=== PATIENT | female | born 1990 | race Caucasian/White ===

== ENCOUNTER 2016-09-16 17:43 | Emergency (ER) | payer OTHER ==
[2016-09-16 17:51] VITALS: BP 108/59
--- NOTE | 2016-09-16 19:02 | UC ---
Eye Complaint HPI - HPI Summary HPI Summary: 26 y/o female presents to the urgent care c/o Left ear pain for the past 2 weeks. Pt reports it started like ear pressure, then pain developed for the past few days, She was taking ibuprofen OTC and pain decrease. But she put Hydrogen Peroxide on her left ear yesterday, and pain was sharp. Today Pain is 6/10. Pt denies fever, ear discharge, CODY, SOB, chest pain, N/V/D, dizziness. Pt has not other complains - History of Current Complaint Chief Complaint: UCEar Stated Complaint: EAR PAIN Time Seen by Provider: 09/16/16 18:49 Hx Obtained From: Patient Hx Last Menstrual Period: 09/12/16 ?: No Onset/Duration: Gradual Onset, Lasting Weeks, Still Present Timing: Constant Severity Initially: Mild Severity Currently: Moderate Pain Intensity: 6 Pain Scale Used: 0-10 Numeric Character: Throbbing Aggravating Factor(s): Nothing Alleviating Factor(s): Other - OTC meds - Allergies/Home Medications Allergies/Adverse Reactions: Allergies Allergy/AdvReac Type Severity Reaction Status Date / Time No Known Allergies Allergy Verified 09/16/16 17:46 PMH/Surg Hx/FS Hx/Imm Hx Previously Healthy: Yes - Surgical History Surgical History: None - Family History Known Family History: Positive: None - Social History Occupation: Employed Full-time Lives: With Family Alcohol Use: None Substance Use Type: None Smoking Status (MU): Never Smoked Tobacco Review of Systems Constitutional: Negative Skin: Negative Eyes: Negative ENT: Ear Ache - Lf ear pain Respiratory: Negative Cardiovascular: Negative Gastrointestinal: Negative Genitourinary: Negative Motor: Negative Neurovascular: Negative Musculoskeletal: Negative Neurological: Negative Psychological: Negative All Other Systems Reviewed And Are Negative: Yes Physical Exam Appearance: Well-Appearing, No Pain Distress, Well-Nourished, Thin Vital Signs: Initial Vital Signs Temp 99 F 09/16/16 17:47 Pulse 78 09/16/16 17:47 Resp 17 09/16/16 17:47 BP 108/59 09/16/16 17:47 Pulse Ox 100 09/16/16 17:47 Vital Signs Reviewed: Yes Eye Exam: Normal Eyes: Positive: Conjunctiva Clear - PERRLA, EOMI, fundi grossly normal ENT: Positive: Normal ENT inspection, Hearing grossly normal, Pharynx normal, TM red - LF TM injected, with no light reflex, mild pus. RT TM wnl, B/L ear canal wnl. Dental Exam: Normal Neck exam: Normal Neck: Positive: Supple, Nontender, Enlarged Nodes @ - Left enlarged cervical lymphnod with tenderness to palaption Respiratory Exam: Normal Respiratory: Positive: Chest non-tender, Lungs clear, Normal breath sounds Cardiovascular Exam: Normal Cardiovascular: Positive: RRR, No Murmur, Pulses Normal, Brisk Capillary Refill Abdominal Exam: Normal Abdomen Description: Positive: Nontender, No Organomegaly, Soft. Negative: CVA Tenderness (R), CVA Tenderness (L) Bowel Sounds: Positive: Present Musculoskeletal Exam: Normal Musculoskeletal: Positive: Strength Intact, ROM Intact, No Edema Neurological Exam: Normal Psychological Exam: Normal Skin Exam: Normal Eye Complaint Course/Dx - Course Course Of Treatment: 26 y/o female presents to the urgent care c/o Left ear pain for the past 2 weeks. Pt reports it started like ear pressure, then pain developed for the past few days, She was taking ibuprofen OTC and pain decrease. But she put Hydrogen Peroxide on her left ear yesterday, and pain was sharp. Today Pain is 6/10. Pt denies fever, ear discharge, CODY, SOB, chest pain, N/V/D, dizziness. Pt has not other complains. Hx obtained. PE abnormal findings: Discharge - Discharge Plan Condition: Stable Disposition: HOME Prescriptions: Amoxicillin PO (*) [Amoxicillin 875 MG (*)] 875 mg PO BID #20 tab Patient Education Materials: Otitis Media (ED) Referrals: Laura Montgomrey MD [Primary Care Provider] - If Needed Additional Instructions: Please take medications as instructed and finish the full course of treatment to avoid recurrent infection. If you do not improve or if symptoms worsen after the course of antibiotics, you should either follow up with your PCP or return to the urgent care for further evaluation and treatment.
--- NOTE | 2016-09-17 00:03 | UC ---
Ear Complaint HPI - HPI Summary HPI Summary: 26 y/o female presents to the urgent care c/o Left ear pain for the past 2 weeks. Pt reports it started like ear pressure, then pain developed for the past few days, She was taking ibuprofen OTC and pain decrease. But she put Hydrogen Peroxide on her left ear yesterday, and pain was sharp. Today Pain is 6/10. Pt denies fever, ear discharge, CODY, SOB, chest pain, N/V/D, dizziness. Pt has not other complains - History of Current Complaint Hx Obtained From: Patient Hx Last Menstrual Period: 09/12/16 ?: No Onset/Duration: Gradual Onset, Lasting Weeks, Still Present Severity Initially: Mild Severity Currently: Moderate Pain Intensity: 6 Pain Scale Used: 0-10 Numeric Alleviating Factors: OTC Meds <Clarissa Summers - Last Filed: 09/17/16 00:04> <Shruthi Montgomery - Last Filed: 09/17/16 08:12> - History of Current Complaint Chief Complaint: UCEar Stated Complaint: EAR PAIN Time Seen by Provider: 09/16/16 18:49 - Allergies/Home Medications Allergies/Adverse Reactions: Allergies Allergy/AdvReac Type Severity Reaction Status Date / Time No Known Allergies Allergy Verified 09/16/16 17:46 PMH/Surg Hx/FS Hx/Imm Hx Previously Healthy: Yes - Surgical History Surgical History: None - Family History Known Family History: Positive: None - Social History Occupation: Employed Full-time Lives: With Family Alcohol Use: None Substance Use Type: None Smoking Status (MU): Never Smoked Tobacco <Clarissa Summers - Last Filed: 09/17/16 00:04> Review of Systems Constitutional: Negative Skin: Negative Eyes: Negative ENT: Ear Ache - Lf ear pain Respiratory: Negative Cardiovascular: Negative Gastrointestinal: Negative Genitourinary: Negative Motor: Negative Neurovascular: Negative Musculoskeletal: Negative Neurological: Negative Psychological: Negative All Other Systems Reviewed And Are Negative: Yes <Clarissa Summers - Last Filed: 09/17/16 00:04> Physical Exam Triage Information Reviewed: Yes Appearance: Well-Appearing, No Pain Distress, Well-Nourished, Thin Vital Signs: Initial Vital Signs Temp 99 F 09/16/16 17:47 Pulse 78 09/16/16 17:47 Resp 17 09/16/16 17:47 BP 108/59 09/16/16 17:47 Pulse Ox 100 09/16/16 17:47 Vital Signs Reviewed: Yes Eye Exam: Normal Eyes: Positive: Conjunctiva Clear - PERRLA, EOMI, fundi grossly normal ENT: Positive: Normal ENT inspection, Hearing grossly normal, Pharynx normal, TM red - LF TM injected, with no light reflex, mild pus. RT TM wnl, B/L ear canal wnl. Dental Exam: Normal Neck exam: Normal Neck: Positive: Supple, Nontender, Enlarged Nodes @ - Left enlarged cervical lymphnod with tenderness to palaption Respiratory Exam: Normal Respiratory: Positive: Chest non-tender, Lungs clear, Normal breath sounds Cardiovascular Exam: Normal Cardiovascular: Positive: RRR, No Murmur, Pulses Normal, Brisk Capillary Refill Abdominal Exam: Normal Abdomen Description: Positive: Nontender, No Organomegaly, Soft. Negative: CVA Tenderness (R), CVA Tenderness (L) Bowel Sounds: Positive: Present Musculoskeletal Exam: Normal Musculoskeletal: Positive: Strength Intact, ROM Intact, No Edema Neurological Exam: Normal Psychological Exam: Normal Skin Exam: Normal <Clarissa Summers - Last Filed: 09/17/16 00:04> Vital Signs: Initial Vital Signs Temp 99 F 09/16/16 17:47 Pulse 78 09/16/16 17:47 Resp 09/16/16 17:47 BP 108/59 09/16/16 17:47 Pulse Ox 100 09/16/16 17:47 <Shruthi Montgomery - Last Filed: 09/17/16 08:12> Ear Complaint Course/Dx - Course Course Of Treatment: 26 y/o female presents to the urgent care c/o Left ear pain for the past 2 weeks. Pt reports it started like ear pressure, then pain developed for the past few days, She was taking ibuprofen OTC and pain decrease. But she put Hydrogen Peroxide on her left ear yesterday, and pain was sharp. Today Pain is 6/10. Pt denies fever, ear discharge, CODY, SOB, chest pain, N/V/D, dizziness. Pt has not other complains. Hx obtained. PE abnormal findings: ENT: Positive: Normal ENT inspection, Hearing grossly normal, Pharynx normal, TM red - LF TM injected, with no light reflex, mild pus. RT TM wnl, B/ L ear canal wnl . Most likely Otits media. Pt Rx amoxicillin 875mg PO BID x10 days and advised to continue taking iburprofen to alleviate pain. Advised if not improment if symptoms do not improve or worsen to return to the clinic or f/ u with her PCP for further evaluation and treatment. Pt understood and agreed. Pt left the clinic ambulating - Differential Dx/Diagnosis Differential Diagnosis/HQI/PQRI: Cerumen Impaction, Mastoiditis, Otitis Externa , Otitis Media, Perforated TM Provider Diagnoses: Left acute otitis media <Clarissa Summers - Last Filed: 09/17/16 00:04> Discharge <Clarissa Summers - Last Filed: 09/17/16 00:04> <Shruthi Montgomery - Last Filed: 09/17/16 08:12> - Discharge Plan Condition: Stable Disposition: HOME Prescriptions: Amoxicillin PO (*) [Amoxicillin 875 MG (*)] 875 mg PO BID #20 tab Patient Education Materials: Otitis Media (ED) Referrals: Laura Montgomery MD [Primary Care Provider] - If Needed Additional Instructions: Please take medications as instructed and finish the full course of treatment to avoid recurrent infection. If you do not improve or if symptoms worsen after the course of antibiotics, you should either follow up with your PCP or return to the urgent care for further evaluation and treatment. Attestation Statement User Type: Provider - I was available for consult. This patient was seen by the JAVIER. The patient was not presented to, seen by, or examined by me. -Adelina <Shruthi Montgomery - Last Filed: 09/17/16 08:12>
== END 2016-09-16 19:09 | disposition home or self-care (01) ==
LOC: UCEAST 17:43
DX: H66.92 Otitis media, unspecified, left ear (principal)
CPT/HCPCS: 99202; G0463

== ENCOUNTER 2017-03-04 12:45 | Emergency (ER) | payer OTHER ==
[2017-03-04 13:15] VITALS: BP 117/49
--- NOTE | 2017-03-04 13:29 | UC ---
UC General HPI - HPI Summary HPI Summary: Pt presents after finding a "worm" in her stool 2 days ago. She tells me that she has been doing a lot of hiking and has been drinking out of "springs" and various "falls" locally. She has brought the worm with her today. Since finding this worm in her stool, she has been trying to treat herself "holistically" by drinking various herbal remedies she is familiar with and eating a lot of " fresh garlic". She is otherwise asymptomatic and has no fever, chills, SOB, chest pain, abdominal pain, N/V/D/C, blood in her stool, or dysuria. - History of Current Complaint Chief Complaint: UCGU Stated Complaint: FB IN STOOL Time Seen by Provider: 03/04/17 13:27 Hx Obtained From: Patient Hx Last Menstrual Period: 02/24/17 Onset/Duration: Sudden Onset - Allergy/Home Medications Allergies/Adverse Reactions: Allergies Allergy/AdvReac Type Severity Reaction Status Date / Time No Known Allergies Allergy Verified 03/04/17 13:15 PMH/Surg Hx/FS Hx/Imm Hx Previously Healthy: Yes - Surgical History Surgical History: None - Family History Known Family History: Positive: None - Social History Alcohol Use: None Substance Use Type: None Smoking Status (MU): Never Smoked Tobacco - Immunization History Most Recent Influenza Vaccination: NOT UTD Review of Systems Constitutional: Negative Respiratory: Negative Cardiovascular: Negative Gastrointestinal: Negative Genitourinary: Negative Neurovascular: Negative Psychological: Negative All Other Systems Reviewed And Are Negative: Yes Physical Exam Triage Information Reviewed: Yes Appearance: Well-Appearing, No Pain Distress, Well-Nourished Vital Signs: Initial Vital Signs Temp 99.3 F 03/04/17 13:12 Pulse 68 03/04/17 13:12 Resp 18 03/04/17 13:12 BP 117/49 03/04/17 13:12 Pulse Ox 100 03/04/17 13:12 Neck: Positive: Supple, Nontender, No Lymphadenopathy Respiratory: Positive: Chest non-tender, Lungs clear, Normal breath sounds, No respiratory distress, No accessory muscle use Cardiovascular: Positive: RRR, No Murmur, Pulses Normal Abdomen Description: Positive: Nontender, No Organomegaly, Soft. Negative: CVA Tenderness (R), CVA Tenderness (L), Distended, Guarding, Hepatomegaly, Peritoneal Signs, Splenomegaly Bowel Sounds: Positive: Present Neurological: Positive: Alert Psychological: Positive: Age Appropriate Behavior Skin: Negative: rashes - Additional Comments Declined a rectal examination today Course/Dx - Course Course Of Treatment: Pt was able to obtain the worm from her stool and place it in a plastic ziploc bag. She has the specimen with her today. I spoke with the [facility] and Dr. Louis regarding this patient. Dr. Louis suspects ascariasis. The lab instructed me to send the specimen in a sterile container with a "parasite exam" order. Rx for albendazole 400mg one time dose. I advised her to follow up with her PCP if she develops any symptoms or notices more parasites in her stool. Advised to stop drinking from streams/ponds/creeks. Upon discharge , pt asked me if there are any holistic methods or remedies she can do to rid herself of this parasite - I informed her that I am not aware of any and that albendazole is the recommended treatment. - Differential Dx - Multi-Symptom Provider Diagnoses: ascariasis. Stool parasite Discharge - Discharge Plan Condition: Stable Disposition: HOME Prescriptions: Albendazole TAB (NF) [Albenza] 400 mg PO ONCE #2 tab Referrals: No Primary Care Phys,NOPCP [Primary Care Provider] - Additional Instructions: If you develop a fever, shortness of breath, chest pain, new or worsening symptoms - please call your PCP or go to the ED. Likely ascariasis. Treatment is a one time dose of albendazole 400mg to ride the parasite. If you develop any abdominal pain, nausea, vomiting, diarrhea, or fever - please go to the ED. Information given on Ascariasis from the CDC website.
== END 2017-03-04 14:04 | disposition home or self-care (01) ==
LOC: UCEAST 12:45
DX: B77.9 Ascariasis, unspecified (principal); B82.9 Intestinal parasitism, unspecified
CPT/HCPCS: 87169; 87177; 87209; 99212; G0463